=== PATIENT | male | born 1965 | race Hispanic/Latino ===

== ENCOUNTER 2018-02-12 20:34 | Emergency (ER) | payer OTHER ==
[2018-02-12] MEDS ORDERED: KETOROLAC TROMETHAMINE 60 MG/2 ML VIAL ONE (21:31)
[2018-02-12] MEDS ORDERED: LIDOCAINE HCL-MPF 1% 2ML VIAL ONE (21:31)
[2018-02-12] MEDS ORDERED: CEFTRIAXONE SODIUM 1 GM ONE (21:31)
== END 2018-02-12 22:38 | disposition home or self-care (01) ==
LOC: EDH 20:34
DX: K02.9 Dental caries, unspecified (principal); E11.9 Type 2 diabetes mellitus without complications; Z72.0 Tobacco use
CPT/HCPCS: 99283; J0696; J1885; J3490